=== PATIENT | male | born 1995 | race Two or more races ===

== ENCOUNTER 2024-08-31 11:01 | Emergency (ER) | payer MEDICAID, OTHER ==
[~2024-08-31] VITALS: Ht 185.4 cm; Wt 107.7 kg
--- NOTE | 2024-08-31 11:52 | ED.PDOC ---
General HPI Comments This is a 29 year old male presenting to the ED with chief complaint of testicular pain. Patient reports that he started to experience left sided testicular pain with associated mild swelling and left flank pain yesterday, but has resolved itself since then. Patient relays that standing and movement would worsen his pain and sitting would relieve it. Patient denies any N/V, dysuria, hematuria, abdominal pain, fever, or chills. Chief Complaint: Testicle Pain Time Seen by MD: 11:51 Reviewed notes: Nurses Notes, Medications, Allergies Allergies: Coded Allergies: NO KNOWN ALLERGIES (Unverified , 08/31/24) Information Source: Patient Mode of Arrival: Ambulatory Severity: Moderate Timing: Days Duration: Since onset Prehospital treatment: None Onset: Spontaneous Symptoms: None History of: None Location: (L)Flank Location male: L Scrotum Penile discharge: None Modifying factors: None Past Medical History PAST MEDICAL HISTORY: Denies Surgical History: Denies all surgeries Family History Family History: Reviewed,noncontributory to illness Social History Smoker: Non-Smoker Alcohol: Denies ETOH Use Drugs: Denies Drug Use Lives In: Home Constitutional: denies: chills, diaphoresis, fatigue, fever, malaise, sweats, weakness, others EENTM: denies: blurred vision, double vision, ear bleeding, ear discharge, ear drainage, ear pain, ear ringing, eye pain, eye redness, hearing loss, mouth pain, mouth swelling, nasal discharge, nose bleeding, nose congestion, nose pain, photophobia, tearing, throat pain, throat swelling, voice changes, others Respiratory: denies: cough, hemoptysis, orthopnea, SOB at rest, shortness of breath, SOB with excertion, stridor, wheezing, others Cardiovascular: denies: chest pain, dizzy spells, diaphoresis, Dyspnea on exertion, edema, irregular heart beat, left arm pain, lightheadedness, palpitations, PND, syncope, others Gastrointestinal: denies: abdomen distended, abdominal pain, blood streaked bowels, constipated, diarrhea, dysphagia, difficulty swallowing, hematemesis, melena, nausea, poor appetite, poor fluid intake, rectal bleeding, rectal pain, vomiting, others Genitourinary: reports: flank pain, testicle pain, testicle swelling; denies: burning, dysuria, frequency, hematuria, incontinence, penile discharge, penile sore, pain, urgency, others Neurological: denies: dizziness, fainting, headache, left sided numbness, left sided weakness, numbness, paresthesia, pre-existing deficit, right sided numbness, right sided weakness, seizure, speech problems, tingling, tremors, weakness, others Musculoskeletal: denies: back pain, gout, joint pain, joint swelling, muscle pain, muscle stiffness, neck pain, others Integumetry: denies: bruises, change in color, change in hair/nails, dryness, laceration, lesions, lumps, rash, wounds, others Allergic/Immunocompromised: denies: Difficulty Healing, Frequent Infections, Hives, Itching, others Hematologic/Lymphatic: denies: anemia, blood clots, easy bleeding, easy bruising, swollen glands, others Endocrine: denies: excessive hunger, excessive sweating, excessive thirst, excessive urination, flushing, intolerance to cold, intolerance to heat, unexplained weight gain, unexplained weight loss, others Psychiatric: denies: anxiety, bipolar disorder, depression, hopeless, panic disorder, schizophrenia, sleepless, suicidal, others All Other Systems: Reviewed and Negative Physical Exam General Appearance: No Apparent Distress, Normal HEENT: Normal ENT Inspection, Pharynx Normal, TMs Normal Neck: Full Range of Motion, Non-Tender, Normal, Normal Inspection Respiratory: Chest Non-Tender, Lungs Clear, No Accessory Muscle Use, No Respiratory Distress, Normal Breath Sounds Cardiovascular: No Edema, No JVD, No Murmur, No Gallop, Normal Peripheral Pulses, Regular Rate/Rhythm Breast Exam: Deferred Gastrointestinal: No Organomegaly, Non Tender, No Pulsatile Mass, Normal Bowel Sounds, Soft Genitalia: Deferred Pelvic: Deferred Rectal: Deferred Extremities: No calf tenderness, Normal capillary refill, Normal inspection, Normal range of motion, Non-tender, No pedal edema Musculoskeletal : Apperance: Normal Neurologic: Alert, owner manager II-XII nml as Tested, No Motor Deficits, Normal Affect, Normal Mood, No Sensory Deficits Cerebellar Function: Normal Reflexes: Normal Skin: Dry, Normal Color, Warm Lymphatic: No Adenopathy Was a procedure done? Was a procedure done?: No Differential Diagnosis Kidney stone (Female): N/A Kidney stone (Male): N/A Penile/Scrotal: Epidiymitis, STD, Testicular Torsion, Other (orchitis, louisa ticular mass, malignancy, hernia, kidney stone) Urinary Problem (Male): N/A Urinary Problem (Female): N/A X-Ray, Labs, Meds, VS Vital Signs Date Time Temp Pulse Resp B/P (MAP) Pulse Ox O2 Delivery O2 Flow Rate FiO2 08/31/24 12:58 98.3 76 18 140/80 (100) 99 98.3 08/31/24 12:58 76 18 99 Room Air 08/31/24 11:25 98.6 8 18 142/82 (102) 98 98.6 Lab Test 08/31/24 12:56 08/31/24 12:50 Range/Units Urine Color Yellow Yellow Urine Clarity Clear Clear Urine pH 5.5 5.0-9.0 Urine Specific [place] 1.026 1.001-1.035 Urine Protein Negative Negative Urine Ketones Negative Negative Urine Blood Negative Negative /uL Urine Nitrite Negative Negative Urine Bilirubin Negative Negative Urine Urobilinogen Normal Negative mg/dL Urine Leukocyte Esterase Negative Negative /uL Urine RBC None seen 0 - 3 /hpf Urine Microscopic WBC 1 0-3 /HPF Urine Squamous Epithelial Cells Few <5 /hpf Urine Bacteria None seen None Seen /hpf Urine Mucus Few None Seen Urine Glucose Normal Normal mg/dL White Blood Count 9.5 4.4-10.8 10^3/uL Red Blood Count 5.28 4.5-5.90 10^6/uL Hemoglobin 15.7 13.5-17.5 g/dL Hematocrit 44.3 41.0-53.0 % Mean Corpuscular Volume 84.0 80.0-100.0 fL Mean Corpuscular Hemoglobin 29.7 28.0-32.0 pg Mean Corpuscular Hemoglobin Concent 35.4 32.0-36.0 g/dL Red Cell Distribution Width 12.8 11.8-14.3 % Platelet Count 230 140-450 10^3/uL Mean Platelet Volume 7.5 6.9-10.8 fL Neutrophils (%) (Auto) 52.7 37.0-80.0 % Lymphocytes (%) (Auto) 36.3 10.0-50.0 % Monocytes (%) (Auto) 9.6 0.0-12.0 % Eosinophils (%) (Auto) 0.9 0.0-7.0 % Basophils (%) (Auto) 0.5 0.0-2.0 % Neutrophils # (Auto) 5.0 1.6-8.6 10 ^3/uL Lymphocytes # (Auto) 3.5 0.4-5.4 10 ^3/uL Monocytes # (Auto) 0.9 0-1.3 10 ^3/uL Eosinophils # (Auto) 0.1 0-0.8 10 ^3/uL Basophils # (Auto) 0 0-0.2 10 ^3/uL Nucleated Red Blood Cells 0.0 % Sodium Level 141 136-145 mmol/L Potassium Level 4.0 3.5-5.1 mmol/L Chloride Level 107 98-107 mmol/L Carbon Dioxide Level 23 20-31 mmol/L Anion Gap 11 5-15 Blood Urea Nitrogen 8 L 9-23 mg/dL Creatinine 0.73 0.700-1.30 mg/dL Glomerular Filtration Rate Calc 127 >90 mL/min BUN/Creatinine Ratio 11.0 10.0-20.0 Serum Glucose 91 74-106 mg/dL Calcium Level 9.9 8.7-10.4 mg/dL CT Abd/Pel: FINDINGS: Lower chest: Clear lung bases. Liver: Homogenous in attenuation. . Biliary: The gallbladder is filled with multiple small stones. The gallbladder is contracted and there is no pericholecystic fluid. No biliary ductal dilatation. Pancreas: No fat stranding or focal lesion. Spleen: Normal in size.. Adrenal glands: No nodularity. Kidneys: No nephrolithiasis. No hydroureteronephrosis. . Bladder: No bladder wall thickening. Reproductive organs: Normal. Bowel: No bowel wall thickening or dilatation. . Peritoneum: No free fluid. No free air. Vessels: Normal caliber abdominal aorta. . Lymph nodes: No suspicious lymph nodes. Soft tissues: Unremarkable. . Osseous structures: No acute fracture or subluxation. No suspicious osseous lesions. IMPRESSION: 1. No urolithiasis or hydroureteronephrosis 2. Cholelithiasis without evidence of acute cholecystitis. Testicular US: FINDINGS and Technique: Transverse and longitudinal grayscale and doppler sonographic images were obtained of the scrotum/testicles. Right testis: Size: 4.7 X 2.3 X 3.5 cm Doppler flow: normal Echogenicity: normal Mass:no Hydrocele:no Epididymis:normal Other:none Left testis: Size: 4.1 X 2.4 X 2.9 cm Doppler flow: Asymmetric hyperemia of the left testicle compared to the right. Echogenicity: normal Mass:no Hydrocele:no Epididymis:normal Other:none IMPRESSION: 1. Asymmetric hyperemia of the left testicle, suspicious for left orchitis. Images Reviewed?: Images reviewed and evaluated by me Time of 1ST Reevaluation: 12:50 Reevaluation 1ST: Unchanged Patient Education/Counseling: Diagnosis, Treatment Family Education/Counseling: No Family Present Comments pt has orchitis, however, due to the demographic of a young male, i will cover him with antibiotics for STI Additional Information Reviewed patient's previous visit(s): None The following tests were ordered, and results were reviewed by me: CBC, BMP, UA, CT Abd/Pel, Testicular US Additional information was gathered from interviewing the following independent historian: None I reviewed and agreed with the following test results read by other provider: CT Abd/Pel, Testicular US I discussed treatments and results with medical personnel and: Patient Comprehensive systems review obtained and negative except for what is stated in the HPI. SEPSIS Sepsis Screen Physician Orders Testicular Ultrasound (08/31/24 11:30) Ct Ab Pel Wo Con-No Oral Or Iv (08/31/24 11:30) Vital Signs Date Time Temp Pulse Resp B/P (MAP) Pulse Ox O2 Delivery O2 Flow Rate FiO2 08/31/24 12:58 98.3 76 18 140/80 (100) 99 98.3 08/31/24 12:58 76 18 99 Room Air 08/31/24 11:25 98.6 8 18 142/82 (102) 98 98.6 Laboratory Tests Test 08/31/24 12:50 White Blood Count 9.5 10^3/uL (4.4-10.8) Departure 1 Departure Time of Disposition: 13:34 Impression: Primary Impression: Orchitis Disposition: 01 HOME / SELF CARE / HOMELESS Condition: Stable e-Prescriptions Azithromycin (ZITHROMAX TABLET) 250 Mg Tb 1000 MG PO ONCE for 1 Day, #4 TAB Prov: JOSEFINA DAI MD 08/31/24 Doxycycline Hyclate (DOXYCYCLINE HYCLATE) 100 Mg Tab 1 TAB PO BID, #14 TAB Prov: JOSEFINA DAI MD 08/31/24 Discharged With: Self Critical Care Note Critical Care Time?: No Stability Stability form required: No Heart Score Heart Score: Heart Score Response (Comments) Value History N/A 0 EKG N/A 0 Age N/A 0 Risk Factors N/A 0 Troponin N/A 0 Total 0 I personally scribed for JOSEFINA DAI MD ([email or web address]) on 08/31/24 at 11:52. Electronically submitted by Prakash Uriostegui ([email or web address]). I personally scribed for JOSEFINA DAI MD ([email or web address]) on 08/31/24 at 12:59. Electronically submitted by Prakash Uriostegui ([email or web address]). JOSEFINA DAI MD Aug 31, 2024 11:52
--- NOTE | 2024-08-31 12:23 | DVH ---
US TESTICULAR ULTRASOUND 08/31/24 HISTORY: left scrotal pain COMPARISON: None FINDINGS and Technique: Transverse and longitudinal grayscale and doppler sonographic images were obt ained of the scrotum/testicles. Right testis: Size: 4.7 X 2.3 X 3.5 cm Doppler flow: normal Echogenicity: normal Mass:no Hydrocele:no Epididymis:normal Other:none Left testis: Size: 4.1 X 2.4 X 2.9 cm Doppler flow: Asymmetric hyperemia of the left testicle compared to the right. Echogenicity: normal Mass:no Hydrocele:no Epididymis:normal Other:none IMPRESSION: 1. Asymmetric hyperemia of the left testicle, suspicious for left orchitis.
--- NOTE | 2024-08-31 12:31 | DVH ---
EXAM DESCRIPTION: CT CT AB PEL WO CON-NO ORAL OR IV CLINICAL HISTORY: left flank pain COMPARISON: None TECHNIQUE: CT abdomen and pelvis without IV contrast was performed. Coronal and sagittal MPR images were generat ed.CTDI/ DLP = 18.45 / 1220.35 Dose reduction technique with one or more of the following methods was performed: Automated exposure control, adjustment of the mA and/or kV according to patient size, use of iterative reconstruction te chnique FINDINGS: Lower chest: Clear lung bases. Liver: Homogenous in attenuation. . Biliary: The gallbladder is filled with multiple small stones. The gallbladder is contracted and ther e is no pericholecystic fluid. No biliary ductal dilatation. Pancreas: No fat stranding or focal lesion. Spleen: Normal in size.. Adrenal glands: No nodularity. Kidneys: No nephrolithiasis. No hydroureteronephrosis. . Bladder: No bladder wall thickening. Reproductive organs: Normal. Bowel: No bowel wall thickening or dilatation. . Peritoneum: No free fluid. No free air. Vessels: Normal caliber abdominal aorta. . Lymph nodes: No suspicious lymph nodes. Soft tissues: Unremarkable. . Osseous structures: No acute fracture or subluxation. No suspicious osseous lesions. IMPRESSION: 1. No urolithiasis or hydroureteronephrosis 2. Cholelithiasis without evidence of acute cholecystitis.
[2024-08-31 13:12] LABS: Hematocrit 44.3 % (41.0-53.0); Hemoglobin 15.7 g/dL (13.5-17.5); Mean Corpuscular Hemoglobin 29.7 pg (28.0-32.0); Mean Corpuscular Volume 84.0 fL (80.0-100.0); Nucleated Red Blood Cells % 0.0 %
[2024-08-31 13:20] LABS: Potassium 4.0 mmol/L (3.5-5.1); Sodium 141 mmol/L (136-145)
[2024-08-31 13:21] LABS: Anion Gap 11 (5-15); Carbon Dioxide 23 mmol/L (20-31)
[2024-08-31 13:22] LABS: Calcium 9.9 mg/dL (8.7-10.4); Chloride 107 mmol/L (98-107)
[2024-08-31 13:26] LABS: Glucose 91 mg/dL (74-106)
[2024-08-31 13:27] LABS: Urine Protein, UAD Negative (Negative)
[2024-08-31 13:27] LABS: BUN/Creatinine Ratio 11.0 (10.0-20.0); Blood Urea Nitrogen 8 mg/dL (9-23)
[2024-08-31] MEDS ORDERED: AZIT-185 PO (13:37)
[2024-08-31] MEDS ORDERED: DOXY-286 PO (13:37)
[2024-08-31] MEDS ORDERED: cefTRIAXone SOD 500 MG VL IM ONE (13:45)
[2024-08-31] MEDS: cefTRIAXone SOD 500 MG VL IM ONE (13:52)
[2024-08-31 13:56] VITALS: BP 133/85; PULSE 72; RESP 16; TEMP 98.6; O2SAT 96
== END 2024-08-31 14:04 | disposition home or self-care (01) ==
LOC: ER 11:01
DX: N45.2 Orchitis (principal)
CPT/HCPCS: 36415; 74176; 76870; 80048; 81001; 85025; 96372; 99285; J0696

== ENCOUNTER 2024-09-02 11:16 | Inpatient (IN) | payer MEDICAID ==
[~2024-09-02] VITALS: Ht 185.4 cm; Wt 108.5 kg
[~2024-09-02 11:16] MED LIST: AZIT-185 PO; DOXY-286 PO
--- NOTE | 2024-09-02 11:24 | ECG ---
[facility] Test Date: 2024-09-02 Test Time: 11:20:42 Pat Name: ALISSON GALARZA Department: ER Room: Gender: M Esthetician: GP : [id number] Requested By: MARTÍNEZ MOLINA Order Number: [id number] Reading MD: Measurements Intervals [place] Rate: 73 P: 38 DE: 138 QRS: 84 QRSD: 100 T: -5 QT: 417 QTc: 460 Interpretive Statements Sinus rhythm Borderline repolarization abnormality Baseline wander in lead(s) V1 Please click the below link to view image of tracing.
--- NOTE | 2024-09-02 11:28 | ED.PDOC ---
GI ASSESSMENT HPI Comments 29 y.o male with PMHx of leukemia, presents to the ED for a chief complaint of upper abdominal pain radiating to his back associated with nausea and vomiting that started today. Patient describes pain as a tightness sensation that is constant. Patient has history of heartburn, states usually alleviates with OTC medication and subsides within an hour but today tried Tums with no relief. Patient denies any diarrhea, fever, chills, dysuria, hematuria, bloody stool. Patient is currently taking antibiotics s/p dx of groin swelling 2 days ago. Chief Complaint: Abdominal Pain Time Seen by MD: 11:20 Reviewed Notes: Nurses Notes, Medications, Allergies Allergies: Coded Allergies: NO KNOWN ALLERGIES (Unverified , 08/31/24) Home Meds Active Scripts Azithromycin (ZITHROMAX TABLET) 250 Mg Tb, 1000 MG PO ONCE for 1 Day, #4 TAB Prov:JOSEFINA DAI MD 08/31/24 Doxycycline Hyclate (DOXYCYCLINE HYCLATE) 100 Mg Tab, 1 TAB PO BID, #14 TAB Prov:JOSEFINA DAI MD 08/31/24 Information Source: Patient Mode of Arrival: Ambulatory Timing: Hours Duration: Since onset Quality: Other (tight ) Vomitus: Hard Stool: Normal Severity: Moderate Recent: None Recent Hx of: None Pain Location: Epigastric Modifying Factors: Nothing Associated sign and symptoms: Nausea, Vomiting, Abdominal Pain Past Medical History PAST MEDICAL HISTORY: Cancer (leukemia ) Surgical History (Other): portacath Family History Family History: Family hx of DM, Family hx of HTN Social History Smoker: Non-Smoker Alcohol: Denies ETOH Use Drugs: Denies Drug Use Lives In: Home Constitutional: denies: chills, diaphoresis, fatigue, fever, malaise, sweats, weakness, others EENTM: denies: blurred vision, double vision, ear bleeding, ear discharge, ear drainage, ear pain, ear ringing, eye pain, eye redness, hearing loss, mouth pain, mouth swelling, nasal discharge, nose bleeding, nose congestion, nose juna n, photophobia, tearing, throat pain, throat swelling, voice changes, others Respiratory: denies: cough, hemoptysis, orthopnea, SOB at rest, shortness of breath, SOB with excertion, stridor, wheezing, others Cardiovascular: denies: chest pain, dizzy spells, diaphoresis, Dyspnea on exertion, edema, irregular heart beat, left arm pain, lightheadedness, palpitations, PND, syncope, others Gastrointestinal: reports: abdominal pain, nausea, vomiting; denies: abdomen distended, blood streaked bowels, constipated, diarrhea, dysphagia, difficulty swallowing, hematemesis, melena, poor appetite, poor fluid intake, rectal bleeding, rectal pain, others Genitourinary: denies: burning, dysuria, flank pain, frequency, hematuria, incontinence, penile discharge, penile sore, pain, testicle pain, testicle swelling, urgency, others Neurological: denies: dizziness, fainting, headache, left sided numbness, left sided weakness, numbness, paresthesia, pre-existing deficit, right sided num bness, right sided weakness, seizure, speech problems, tingling, tremors, weakness, others Musculoskeletal: denies: back pain, gout, joint pain, joint swelling, muscle pain, muscle stiffness, neck pain, others Integumetry: denies: bruises, change in color, change in hair/nails, dryness, laceration, lesions, lumps, rash, wounds, others Allergic/Immunocompromised: denies: Difficulty Healing, Frequent Infections, Hives, Itching, others Hematologic/Lymphatic: denies: anemia, blood clots, easy bleeding, easy bruising, swollen glands, others Endocrine: denies: excessive hunger, excessive sweating, excessive thirst, excessive urination, flushing, intolerance to cold, intolerance to heat, unexplained weight gain, unexplained weight loss, others Psychiatric: denies: anxiety, bipolar disorder, depression, hopeless, panic disorder, schizophrenia, sleepless, suicidal, others All Other Systems: Reviewed and Negative Physical Exam General Appearance: Moderate Distress, Obese HEENT: Normal ENT Inspection, Pharynx Normal, TMs Normal Neck: Full Range of Motion, Non-Tender, Normal, Normal Inspection Respiratory: Chest Non-Tender, Lungs Clear, No Accessory Muscle Use, No Respiratory Distress, Normal Breath Sounds Cardiovascular: No Edema, No JVD, No Murmur, No Gallop, Normal Peripheral Pulses, Regular Rate/Rhythm Breast Exam: Deferred Gastrointestinal: Epigastric, No Organomegaly, No Pulsatile Mass, Normal Bowel Sounds, Soft, Tenderness Genitalia: Deferred Pelvic: Deferred Rectal: Deferred Extremities: No calf tenderness, Normal capillary refill, Normal inspection, Normal range of motion, Non-tender, No pedal edema Musculoskeletal : Apperance: Normal Neurologic: Alert, stone driller helper II-XII nml as Tested, No Motor Deficits, Normal Affect, Normal Mood, No Sensory Deficits Cerebellar Function: Normal Reflexes: Normal Skin: Dry, Normal Color, Warm Lymphatic: No Adenopathy EKG EKG : Pulse Rate (adult): 73 Cardiac Rhythm: NSR Was a procedure done? Was a procedure done?: No GI differential Dx Differential Diagnosis: Cholangitis, Cholecystitis, Gastroenteritis, Pancreatitis, Dehydration, Electrolyte Imbalance X-Ray, Labs, Meds, VS Vital Signs Date Time Temp Pulse Resp B/P (MAP) Pulse Ox O2 Delivery O2 Flow Rate FiO2 09/02/24 13:01 67 18 151/98 09/02/24 11:28 73 09/02/24 11:20 98.0 79 18 149/96 (113) 100 98.0 09/02/24 11:20 73 Lab Test 09/02/24 11:36 09/02/24 11:25 Range/Units Urine Color Light-yellow Yellow Urine Clarity Clear Clear Urine pH 6.5 5.0-9.0 Urine Specific [place] 1.030 1.001-1.035 Urine Protein Trace H Negative Urine Ketones Trace Negative Urine Blood Negative Negative /uL Urine Nitrite Negative Negative Urine Bilirubin Negative Negative Urine Urobilinogen Normal Negative mg/dL Urine Leukocyte Esterase Negative Negative /uL Urine RBC 1 0 - 3 /hpf Urine Microscopic WBC < 1 0-3 /HPF Urine Squamous Epithelial Cells None seen <5 /hpf Urine Bacteria None seen None Seen /hpf Urine Mucus Few None Seen Urine Glucose Normal Normal mg/dL White Blood Count 11.5 H 4.4-10.8 10^3/uL Red Blood Count 5.45 4.5-5.90 10^6/uL Hemoglobin 15.9 13.5-17.5 g/dL Hematocrit 45.5 41.0-53.0 % Mean Corpuscular Volume 83.5 80.0-100.0 fL Mean Corpuscular Hemoglobin 29.2 28.0-32.0 pg Mean Corpuscular Hemoglobin Concent 35.0 32.0-36.0 g/dL Red Cell Distribution Width 12.7 11.8-14.3 % Platelet Count 274 140-450 10^3/uL Mean Platelet Volume 7.4 6.9-10.8 fL Neutrophils (%) (Auto) 71.9 37.0-80.0 % Lymphocytes (%) (Auto) 20.8 10.0-50.0 % Monocytes (%) (Auto) 6.5 0.0-12.0 % Eosinophils (%) (Auto) 0.4 0.0-7.0 % Basophils (%) (Auto) 0.4 0.0-2.0 % Neutrophils # (Auto) 8.2 1.6-8.6 10 ^3/uL Lymphocytes # (Auto) 2.4 0.4-5.4 10 ^3/uL Monocytes # (Auto) 0.7 0-1.3 10 ^3/uL Eosinophils # (Auto) 0 0-0.8 10 ^3/uL Basophils # (Auto) 0 0-0.2 10 ^3/uL Nucleated Red Blood Cells 0.1 % Sodium Level 140 136-145 mmol/L Potassium Level 4.2 3.5-5.1 mmol/L Chloride Level 105 98-107 mmol/L Carbon Dioxide Level 27 20-31 mmol/L Anion Gap 8 5-15 Blood Urea Nitrogen 11 9-23 mg/dL Creatinine 0.78 0.700-1.30 mg/dL Glomerular Filtration Rate Calc 125 >90 mL/min BUN/Creatinine Ratio 14.1 10.0-20.0 Serum Glucose 107 H 74-106 mg/dL Calcium Level 9.6 8.7-10.4 mg/dL Total Bilirubin 0.6 0.2-1.0 mg/dL Aspartate Amino Transferase (AST) 30 13-40 U/L Alanine Aminotransferase (ALT) 43 H 7-40 U/L Alkaline Phosphatase 87 46-116 U/L Total Protein 8.0 5.7-8.2 g/dL Albumin 5.0 H 3.2-4.8 g/dL Lipase 32 12-53 U/L Current Medications Medications (Trade) Dose Ordered Sig/Vee Route Start Time Stop Time Status Last Admin Ondansetron HCl (Zofran) 4 mg ONCE ONCE IV 09/02/24 11:30 09/02/24 11:31 DC 09/02/24 13:00 Pantoprazole Sodium (Protonix) 40 mg ONCE ONCE IV 09/02/24 11:30 09/02/24 11:31 DC 09/02/24 13:01 Morphine Sulfate 4 mg ONCE ONCE IV 09/02/24 12:45 09/02/24 12:46 DC 09/02/24 13:01 US GALLBLADDER IMPRESSION: Cholelithiasis. Hepatic steatosis. IV Hep-Lock was established The patient was given Zofran 4 mg IV push for the nausea The patient was given Protonix 40 mg IV push The patient was given morphine 4 mg IV push for the pain The patient's CBC is within normal limits except for an elevated white blood cell count of 11.5 The rest of the CBC and chemistry panel are within normal limits The lipase is within normal limits The urine test is negative for infection We discussed the findings with the patient and the patient is being admitted with a diagnosis of intractable abdominal pain and cholelithiasis Images Reviewed?: Images reviewed and evaluated by me Time of 1ST Reevaluation: 11:27 Reevaluation 1ST: Unchanged Patient Education/Counseling: Diagnosis, Treatment, Prognosis Family Education/Counseling: No Family Present SEPSIS Sepsis Screen Physician Orders Heplock Iv (09/02/24 11:23) Gallbladder (09/02/24 11:23) Vital Signs Date Time Temp Pulse Resp B/P (MAP) Pulse Ox O2 Delivery O2 Flow Rate FiO2 09/02/24 13:01 67 18 151/98 09/02/24 11:28 73 09/02/24 11:20 98.0 79 18 149/96 (113) 100 98.0 09/02/24 11:20 73 Laboratory Tests Test 09/02/24 11:25 White Blood Count 11.5 10^3/uL (4.4-10.8) H Medications Medications Dose Ordered Sig/Vee Route Start Time Stop Time Status Last Admin Dose Admin Morphine Sulfate 4 mg ONCE ONCE IV 09/02/24 12:45 09/02/24 12:46 DC 09/02/24 13:01 Ondansetron HCl 4 mg ONCE ONCE IV 09/02/24 11:30 09/02/24 11:31 DC 09/02/24 13:00 Pantoprazole Sodium 40 mg ONCE ONCE IV 09/02/24 11:30 09/02/24 11:31 DC 09/02/24 13:01 Departure 1 Departure Time of Disposition: 13:13 Impression: Primary Impression: Intractable abdominal pain Additional Impression: Cholelithiasis Qualified Codes: K80.20 - Calculus of gallbladder without cholecystitis without obstruction Disposition: 09 ADMITTED INPATIENT Admit to: Med Surg Condition: Fair Critical Care Note Critical Care Time?: No Stability Stability form required: Yes Unstable for transfer: ED Physician Assesment (Clinical assesment) I personally scribed for MARTÍNEZ MOLINA MD ([email or web address]) on 09/02/24 at 11:28. Electronically submitted by Basilia Stephenson ([facility]). I personally scribed for MARTÍNEZ MOLINA MD ([email or web address]) on 09/02/24 at 12:57. Electronically submitted by Basilia Stephenson ([facility]). MARÍTNEZ MOLINA MD Sep 02, 2024 11:28
[2024-09-02 11:43] LABS: Hematocrit 45.5 % (41.0-53.0); Hemoglobin 15.9 g/dL (13.5-17.5); Mean Corpuscular Hemoglobin 29.2 pg (28.0-32.0); Mean Corpuscular Volume 83.5 fL (80.0-100.0); Nucleated Red Blood Cells % 0.1 %
[2024-09-02 11:58] LABS: Alkaline Phosphatase 87 U/L (46-116); Anion Gap 8 (5-15); BUN/Creatinine Ratio 14.1 (10.0-20.0); Blood Urea Nitrogen 11 mg/dL (9-23); Calcium 9.6 mg/dL (8.7-10.4); Carbon Dioxide 27 mmol/L (20-31); Chloride 105 mmol/L (98-107); Lipase 32 U/L (12-53); Potassium 4.2 mmol/L (3.5-5.1); Sodium 140 mmol/L (136-145); Total Protein 8.0 g/dL (5.7-8.2)
[2024-09-02 11:59] LABS: Alanine Aminotransferase 43 U/L (7-40); Albumin 5.0 g/dL (3.2-4.8); Bilirubin, Total 0.6 mg/dL (0.2-1.0); Glucose 107 mg/dL (74-106)
--- NOTE | 2024-09-02 12:22 | DVH ---
US GALLBLADDER HISTORY: pain COMPARISON: None TECHNIQUE: Transverse and longitudinal grayscale and color sonographic images were obtained of the ab domen. FINDINGS: Liver: - Size: 17.4 cm - Echogenicity: Hyperechoic - Surface Contour: Smooth - Liver Lesion(s): None - Portal Vein: Patent and forward flowing. - Bile Ducts: Normal. The common bile duct measures 2.8 mm. Gallbladder: Gallstones.. The sonographic taylor sign is positive. Pancreas: Portions not obscured by bowel gas are normal. Kidneys: - Right kidney size: 11.8 cm. There is no hydronephrosis, renal calculi, or mass lesion. Aorta and Inferior Vena Cava: The visualized portions of the abdominal aorta and intrahepatic vena ca va are normal. Other: None IMPRESSION: Cholelithiasis. Hepatic steatosis.
[2024-09-02] MEDS: ONDANSETRON HCL 4 MG/2 ML VIAL IV ONE (13:00)
[2024-09-02] MEDS: PANTOPRAZOLE 40 MG/10 ML VIAL INJ IV ONE (13:01)
[2024-09-02] MEDS: MORPHINE SULFATE 4 MG/ML SYR/VIAL IV ONE (13:01)
[2024-09-02 13:04] LABS: Urine Protein, UAD TRACE (Negative)
[2024-09-02] MEDS: SODIUM CHLORIDE 0.9% 1,000 ML IV SCH (16:15)
--- NOTE | 2024-09-02 16:36 | DVHHP2 ---
History of Present Illness Reason for Visit: Abdominal pain History of Present Illness 29-year-old male with past medical history of leukemia in remission and chronic heartburn presents to the ED with abdominal pain that began yesterday. The pain is associated with nausea and vomiting. He denies hematemesis, diarrhea or recent dietary changes. The patient typically manage his heartburn symptoms with [id number] medication Tums, but this episode has not responded to them. He was seen in the ED two days ago for left-sided orchitis and was started on doxycycline with a one time dose of azithromycin. During that visit, a CT abdomen/pelvis revealed cholelithiasis without evidence of acute cholecysti tis. Today, a gallbladder ultrasound was performed and noted to show cholelithiasis and hepatic steatosis. Past Medical History As stated in HPI Past Surgical History port-a-cath Family History Reviewed, non-contributory to the management of this case. Past Social History The patient lives at home, denies smoking, alcohol or illicit drugs abuse. Review of Systems Constitutional: Yes: Malaise; No: Fever, Chills, Sweats, Weakness, Other Eyes: No: Pain, Vision change, Conjunctivae inflammation, Eyelid inflammation, Other, Redness ENT: No: Ear pain, Ear discharge, Nose pain, Nose discharge, Nose congestion, Mouth pain, Mouth swelling, Throat pain, Throat swelling, Other Respiratory: No: Cough, Dry, Shortness of breath, SOB with excertion, Wheezing, Hemoptysis, Pleuritic Pain, Sputum, Wheezing, Other Cardiovascular: No: Chest Pain, Palpitations, Orthopnea, Paroxysmal Noc. Dyspnea, Edema, Lt Headedness, Other Gastrointestinal: Nausea, Vomiting, Abdominal Pain; No: Diarrhea, Constipation, Melena, Hematochezia, Other Genitourinary: No Dysuria, No Frequency, No Incontinence, No Hematuria, No Retention, No Other Musculoskeletal: No: other, neck pain, shoulder pain, arm pain, back pain, hand pain, leg pain, foot pain Skin: No: Rash, Lesions, Jaundice, Bruising, Other Neurological: No: Weakness, Numbness, Incoordination, Change in speech, Confusion, Seizures, Other Allergies: Coded Allergies: NO KNOWN ALLERGIES (Unverified , 08/31/24) Exam Vital Signs Vital Signs Date Time Temp Pulse Resp B/P (MAP) Pulse Ox O2 Delivery O2 Flow Rate FiO2 09/02/24 13:01 67 18 151/98 09/02/24 11:20 98.0 100 98.0 General Appearance: Alert, Oriented X3, Cooperative, mild distress HEENT: Atraumatic, PERRLA, EOMI, Mucous membr. moist/pink Respiratory: Clear to auscultation, Normal air movement Cardiovascular: Regular rate, Normal S1 Abdominal: Normal bowel sounds, Soft, Other (Mild tenderness to epigastric) Extremities: No clubbing, No cyanosis, No edema, Normal pulses Skin: No rashes, No breakdown Neuro: Normal speech, Normal tone Psych/Mental Status: Mental status NL Labs/Xrays Labs Test 09/02/24 11:36 09/02/24 11:25 Range/Units Urine Color Light-yellow Yellow Urine Clarity Clear Clear Urine pH 6.5 5.0-9.0 Urine Specific [place] 1.030 1.001-1.035 Urine Protein Trace H Negative Urine Ketones Trace Negative Urine Blood Negative Negative /uL Urine Nitrite Negative Negative Urine Bilirubin Negative Negative Urine Urobilinogen Normal Negative mg/dL Urine Leukocyte Esterase Negative Negative /uL Urine RBC 1 0 - 3 /hpf Urine Microscopic WBC < 1 0-3 /HPF Urine Squamous Epithelial Cells None seen <5 /hpf Urine Bacteria None seen None Seen /hpf Urine Mucus Few None Seen Urine Glucose Normal Normal mg/dL White Blood Count 11.5 H 4.4-10.8 10^3/uL Red Blood Count 5.45 4.5-5.90 10^6/uL Hemoglobin 15.9 13.5-17.5 g/dL Hematocrit 45.5 41.0-53.0 % Mean Corpuscular Volume 83.5 80.0-100.0 fL Mean Corpuscular Hemoglobin 29.2 28.0-32.0 pg Mean Corpuscular Hemoglobin Concent 35.0 32.0-36.0 g/dL Red Cell Distribution Width 12.7 11.8-14.3 % Platelet Count 274 140-450 10^3/uL Mean Platelet Volume 7.4 6.9-10.8 fL Neutrophils (%) (Auto) 71.9 37.0-80.0 % Lymphocytes (%) (Auto) 20.8 10.0-50.0 % Monocytes (%) (Auto) 6.5 0.0-12.0 % Eosinophils (%) (Auto) 0.4 0.0-7.0 % Basophils (%) (Auto) 0.4 0.0-2.0 % Neutrophils # (Auto) 8.2 1.6-8.6 10 ^3/uL Lymphocytes # (Auto) 2.4 0.4-5.4 10 ^3/uL Monocytes # (Auto) 0.7 0-1.3 10 ^3/uL Eosinophils # (Auto) 0 0-0.8 10 ^3/uL Basophils # (Auto) 0 0-0.2 10 ^3/uL Nucleated Red Blood Cells 0.1 % Sodium Level 140 136-145 mmol/L Potassium Level 4.2 3.5-5.1 mmol/L Chloride Level 105 98-107 mmol/L Carbon Dioxide Level 27 20-31 mmol/L Anion Gap 8 5-15 Blood Urea Nitrogen 11 9-23 mg/dL Creatinine 0.78 0.700-1.30 mg/dL Glomerular Filtration Rate Calc 125 >90 mL/min BUN/Creatinine Ratio 14.1 10.0-20.0 Serum Glucose 107 H 74-106 mg/dL Calcium Level 9.6 8.7-10.4 mg/dL Total Bilirubin 0.6 0.2-1.0 mg/dL Aspartate Amino Transferase (AST) 30 13-40 U/L Alanine Aminotransferase (ALT) 43 H 7-40 U/L Alkaline Phosphatase 87 46-116 U/L Total Protein 8.0 5.7-8.2 g/dL Albumin 5.0 H 3.2-4.8 g/dL Lipase 32 12-53 U/L PROCEDURE(s): GBUS - GALLBLADDER REASON: pain ORDER NUMBER(s): [id number], ACCESSION NUMBER(s): [id number] US GALLBLADDER HISTORY: pain COMPARISON: None TECHNIQUE: Transverse and longitudinal grayscale and color sonographic images were obtained of the abdomen. FINDINGS: Liver: - Size: 17.4 cm - Echogenicity: Hyperechoic - Surface Contour: Smooth - Liver Lesion(s): None - Portal Vein: Patent and forward flowing. - Bile Ducts: Normal. The common bile duct measures 2.8 mm. Gallbladder: Gallstones.. The sonographic taylor sign is positive. Pancreas: Portions not obscured by bowel gas are normal. Kidneys: - Right kidney size: 11.8 cm. There is no hydronephrosis, renal calculi, or mass lesion. Aorta and Inferior Vena Cava: The visualized portions of the abdominal aorta and intrahepatic vena cava are normal. Other: None IMPRESSION: Cholelithiasis. Hepatic steatosis. Assessment/Plan Assessment/Plan # acute abdominal pain, nausea, vomiting--likely biliary colic Symptoms consistent with intermittent obstruction from known cholelithiasis Mildly elevated WBC likely reactive due to recent vomiting and orchitis Mildly elevated liver function test, likely fatty liver * Admit to med/surg unit * NPO, or clear liquid diet as tolerated * Antiemetics * IV fluid * Pain control * PPI prophylaxis # cholelithiasis-symptomatic Confirmed on prior CT in today's gallbladder ultrasound * Monitor * Consider surgical consult if symptoms does not improve # hepatic steatosis--incidental finding * No transaminitis or signs of hepatic decompensation * Lifestyle counseling recommended # left orchitis--recent diagnosis * Currently on doxy, continue as prescribed # leukemia in remission No cytopenias or concerning findings on current lab Continue routine surveillance PPI prophylaxis Medical plan discussed with patient Plan discussed with: Patient My Orders Orders - DAVID PIERRE Procedure Category Date Status Time Admit ADMIT 09/02/24 Transmitted 16:10 Code Status CODE 09/02/24 Transmitted 16:10 0.9% Ns 1000 Ml PHA 09/02/24 Transmitted 16:15 Hydrocodone-Acet PHA 09/02/24 Transmitted 5/325mg Tab ([place] 16:15 Ondansetron Hcl PHA 09/02/24 Transmitted (Zofran) 16:15 Complete Blood Count LAB 09/03/24 Verified 04:00 Comprehensive LAB 09/03/24 Verified Metabolic Panel 04:00 Condition: Fair DORA 09/02/24 Transmitted 16:10 Acetaminophen Tablet PHA 09/02/24 Transmitted (Tylenol Tablet) 16:15 Clear Liq Diet DIET 09/02/24 Transmitted Dinner Morphine Sulfate PHA 09/02/24 Transmitted Injection 16:15 Date of Service: Sep 02, 2024 Billing Provider: DAVID PIERRE Common Visit Codes: 33176-[id number] INP/OBS CARE (HIGH) Consultation Codes: 97140-[id number] CONSULT <45MIN DAVID PIERRE Sep 02, 2024 16:36
[2024-09-02] MEDS: ONDANSETRON HCL 4 MG/2 ML VIAL IV PRN (18:03)
[2024-09-02] MEDS: MORPHINE SULFATE INJ 2 MG/ml SYRG IV PRN (18:04)
[2024-09-02 21:00] VITALS: BP 165/94; PULSE 70; RESP 20; TEMP 98.2; O2SAT 99
[2024-09-02] MEDS: DOXYCYCLINE 100 MG TAB/CAP PO SCH (21:06)
[2024-09-03] VITALS (7 sets, daily range): BP systolic 113–160; BP diastolic 75–93; PULSE 72–84; RESP 15–20; TEMP 97.9–98.7; O2SAT 96–98
[2024-09-03] MEDS: HYDROcodone-ACET 5/325MG TAB PO PRN (06:15)
[2024-09-03 06:51] LABS: Hematocrit 43.0 % (41.0-53.0); Hemoglobin 15.2 g/dL (13.5-17.5); Mean Corpuscular Hemoglobin 29.6 pg (28.0-32.0); Mean Corpuscular Volume 84.0 fL (80.0-100.0); Nucleated Red Blood Cells % 0.1 %
[2024-09-03 06:55] LABS: Alanine Aminotransferase 34 U/L (7-40); Albumin 4.5 g/dL (3.2-4.8); Alkaline Phosphatase 87 U/L (46-116); Anion Gap 9 (5-15); BUN/Creatinine Ratio 11.0 (10.0-20.0); Bilirubin, Total 0.9 mg/dL (0.2-1.0); Calcium 9.1 mg/dL (8.7-10.4); Carbon Dioxide 25 mmol/L (20-31); Chloride 105 mmol/L (98-107); Glucose 95 mg/dL (74-106); Potassium 3.9 mmol/L (3.5-5.1); Sodium 139 mmol/L (136-145); Total Protein 7.1 g/dL (5.7-8.2)
[2024-09-03 06:56] LABS: Blood Urea Nitrogen 9 mg/dL (9-23)
[2024-09-03] MEDS: PANTOPRAZOLE 40 MG/10 ML VIAL INJ IV SCH (10:52)
[2024-09-03] MEDS: ACETAMINOPHEN 325 MG TAB PO PRN (12:47)
--- NOTE | 2024-09-03 12:58 | DVHPNRES ---
Progress Note Date Seen: Sep 03, 2024 Resident Creating Document: VIOLETTE FORTE RESIDENT Medical Necessity Reason Pt with a Central, PICC or Fol: No Subjective Review of Systems 29-year-old male with past medical history of leukemia in remission and chronic heartburn presents to the ED with abdominal pain that began yesterday. The pain is associated with nausea and vomiting. He denies hematemesis, diarrhea or recent dietary changes. The patient typically manage his heartburn symptoms with qfnd-div-ksrlipo medication Tums, but this episode has not responded to them. He was seen in the ED two days ago for left-sided orchitis and was started on doxycycline with a one time dose of azithromycin. During that visit, a CT abdomen/pelvis revealed cholelithiasis without evidence of acute cholecystitis. Today, a gallbladder ultrasound was performed and noted to show cholelithiasis and hepatic steatosis. Objective vital signs Vital Sign Date Time Temp Pulse Resp B/P (MAP) Pulse Ox O2 Delivery O2 Flow Rate FiO2 09/03/24 09:00 98.1 77 16 143/84 (103) 97 98.1 09/03/24 08:00 Room Air* 0 21 Total Intake and Output 09/02/24 09/02/24 09/03/24 15:00 23:00 07:00 Intake Total 100 ml 1520 ml Balance 100 ml 1520 ml medications Current Medications Medications Dose Ordered Sig/Vee Route Start Time Stop Time Status Last Admin Dose Admin Acetaminophen/ Hydrocodone Bitart 1 tab Q4HP PRN PO 09/02/24 16:15 09/03/24 06:15 1 TAB Ondansetron HCl 4 mg Q4HP PRN IV 09/02/24 16:15 09/02/24 18:03 4 MG Acetaminophen 650 mg Q6HP PRN PO 09/02/24 16:15 09/03/24 12:47 650 MG Morphine Sulfate 2 mg Q4HPRN PRN IV 09/02/24 16:15 09/02/24 18:04 2 MG Doxycycline Monohydrate 100 mg BID PO 09/02/24 22:00 09/03/24 10:52 100 MG Pantoprazole Sodium 40 mg DAILY IV 09/03/24 10:00 09/03/24 10:52 40 MG laboratory and microbiology Laboratory Tests 09/03/24 05:29 Test 09/03/24 05:29 Range/Units Serum Glucose 95 74-106 mg/dL VIOLETTE FORTE RESIDENT Sep 03, 2024 12:58
--- NOTE | 2024-09-03 16:36 | DVHDSRES ---
Discharge Summary Date of Admission Resident Creating Document: VIOLETTE FORTE Sep 02, 2024 at 16:10 Date of Discharge: Sep 03, 2024 Admitting Diagnosis Acute abdominal pain, nausea, vomiting- likely due to biliary colic Labs/Diagnostic Data: Laboratory Results Test 09/03/24 05:29 09/02/24 11:36 09/02/24 11:25 White Blood Count 13.3 10^3/uL (4.4-10.8) Red Blood Count 5.12 10^6/uL (4.5-5.90) Hemoglobin 15.2 g/dL (13.5-17.5) Hematocrit 43.0 % (41.0-53.0) Mean Corpuscular Volume 84.0 fL (80.0-100.0) Mean Corpuscular Hemoglobin 29.6 pg (28.0-32.0) Mean Corpuscular Hemoglobin Concent 35.2 g/dL (32.0-36.0) Red Cell Distribution Width 12.7 % (11.8-14.3) Platelet Count 266 10^3/uL (140-450) Mean Platelet Volume 7.7 fL (6.9-10.8) Neutrophils (%) (Auto) 66.3 % (37.0-80.0) Lymphocytes (%) (Auto) 21.4 % (10.0-50.0) Monocytes (%) (Auto) 11.5 % (0.0-12.0) Eosinophils (%) (Auto) 0.6 % (0.0-7.0) Basophils (%) (Auto) 0.2 % (0.0-2.0) Neutrophils # (Auto) 8.8 10 ^3/uL (1.6-8.6) Lymphocytes # (Auto) 2.8 10 ^3/uL (0.4-5.4) Monocytes # (Auto) 1.5 10 ^3/uL (0-1.3) Eosinophils # (Auto) 0.1 10 ^3/uL (0-0.8) Basophils # (Auto) 0 10 ^3/uL (0-0.2) Nucleated Red Blood Cells 0.1 % Sodium Level 139 mmol/L (136-145) Potassium Level 3.9 mmol/L (3.5-5.1) Chloride Level 105 mmol/L (98-107) Carbon Dioxide Level 25 mmol/L (20-31) Anion Gap 9 (5-15) Blood Urea Nitrogen 9 mg/dL (9-23) Creatinine 0.82 mg/dL (0.700-1.30) Glomerular Filtration Rate Calc 123 mL/min (>90) BUN/Creatinine Ratio 11.0 (10.0-20.0) Serum Glucose 95 mg/dL (74-106) Calcium Level 9.1 mg/dL (8.7-10.4) Total Bilirubin 0.9 mg/dL (0.2-1.0) Aspartate Amino Transferase (AST) 27 U/L (13-40) Alanine Aminotransferase (ALT) 34 U/L (7-40) Alkaline Phosphatase 87 U/L (46-116) Total Protein 7.1 g/dL (5.7-8.2) Albumin 4.5 g/dL (3.2-4.8) Urine Color Light-yellow (Yellow) Urine Clarity Clear (Clear) Urine pH 6.5 (5.0-9.0) Urine Specific [place] 1.030 (1.001-1.035) Urine Protein Trace (Negative) Urine Ketones Trace (Negative) Urine Blood Negative /uL (Negative) Urine Nitrite Negative (Negative) Urine Bilirubin Negative (Negative) Urine Urobilinogen Normal mg/dL (Negative) Urine Leukocyte Esterase Negative /uL (Negative) Urine RBC 1 /hpf (0 - 3) Urine Microscopic WBC < 1 /HPF (0-3) Urine Squamous Epithelial Cells None seen /hpf (<5) Urine Bacteria None seen /hpf (None Seen) Urine Mucus Few (None Seen) Urine Glucose Normal mg/dL (Normal) Lipase 32 U/L (12-53) Other Laboratory Tests 09/03/24 05:29 Brief Hx & Hospital Course: 29-year-old male with past medical history of leukemia in remission and chronic heartburn presents to the ED with abdominal pain that began yesterday. The pain was associated with nausea and vomiting. He denies hematemesis, diarrhea or recent dietary changes. The patient typically manage his heartburn symptoms with rykp-iso-lhpqbyr medication Tums, but this episode has not responded to them. He was seen in the ED two days ago for left-sided orchitis and was started on doxycycline with a one time dose of azithromycin. During that visit, a CT abdomen/pelvis revealed cholelithiasis without evidence of acute cholecystitis. Yesterday, gallbladder ultrasound was performed and noted to show cholelithiasis and hepatic steatosis. Patient reports feeling better than yesterday, he does not complain of any nausea, vomiting, or abdominal pain. For acute abdominal pain the symptoms were consistent with intermittent obstruction from known cholelithiasis, mild elevation of WBC which was likely due to recent vomiting and orchitis. There was mildly elevated liver function test likely due to fatty liver. Patient was started on clear liquid diet as tolerated antiemetics IV fluids and pain control with PPI prophylaxis. For left sided orchitis which is a recent diagnosis he was currently on doxycycline and is advised to continue as prescribed. Patient appears comfortable and stable for discharge reports no additional symptoms or complaints. Discussed with the patient for 23 minutes, he communicated understanding. Condition at Discharge: Stable Final Diagnosis/Problems List Acute abdominal pain, nausea, no vomiting-likely due to biliary colic Cholelithiasis-symptomatic Hepatic steatosis-incidental finding Left orchitis Leukemia in remission Discharge Disposition: Home with Health Services Discharge Instruct/Medications Diet: Consistent carbohydrate, Cardiac 2g Na,low cholest Activity: No Restrictions, As Tolerated Follow Up/Referral: Follow up with discharge clinic in 1-2 weeks Medications: As per EMR Scheduled Doxycycline Hyclate (Doxycycline Hyclate), 1 TAB PO BID Pantoprazole Sodium Sesquihydr (Protonix), 40 MG PO DAILY Discontinued Medications Azithromycin (Zithromax Tablet), 1,000 MG PO ONCE Discharge Statement: "Patient was advised to return to the ER or call 911 if any headaches, dizziness, shortness of breath, chest pain, abdominal pain, bleeding, fevers, or worsening of medical condition. Patient was counseled about treatment plan, medications, possible side effects, patientverbalized understanding. All questions were answered to the best of my ability. This discharge took greater then 30 minutes in planning, reviewing documentation, counseling the patient, and discussing with other team members." ASSESSMENT ASSESSMENT Assessment Acute abdominal pain, nausea, no vomiting-likely due to biliary colic Cholelithiasis-symptomatic Hepatic steatosis-incidental finding Left orchitis Leukemia in remission Date of Service: Sep 03, 2024 Billing Provider: DANNI LEIVA MD Common Visit Codes: 77280-ATU/OBS DISCH DAY >30min VIOLETTE FORTE RESIDENT Sep 03, 2024 16:36 DANNI LEIVA MD Sep 04, 2024 20:23
[2024-09-03] MEDS ORDERED: PANT40TA2 PO (16:39)
== END 2024-09-03 18:49 | disposition home or self-care (01) ==
LOC: ER 11:16 → OVERFLOW 16:10 → EAST 18:30
PROVIDERS: ADMIT Student in an Organized Health Care Education/Training Program; ATTEND Student in an Organized Health Care Education/Training Program
DX: K80.70 Calculus of gallbladder and bile duct without cholecystitis without obstruction (principal); K76.0 Fatty (change of) liver, not elsewhere classified; C95.91 Leukemia, unspecified, in remission; N45.2 Orchitis; Z79.2 Long term (current) use of antibiotics; Z79.899 Other long term (current) drug therapy; Z83.3 Family history of diabetes mellitus; Z82.49 Family history of ischemic heart disease and other diseases of the circulatory system
CPT/HCPCS: 36415; 76705; 80053; 81001; 83690; 85025; 93005; 96361; 96374; 96375; G0378; J2405; J2470